=== PATIENT | female | born 1945 | race Caucasian/White ===

== ENCOUNTER 2020-12-27 13:26 | Outpatient (CLI) | payer MEDICARE, SELFPAY | END 2020-12-27 13:27 | disposition home or self-care (01) | PROVIDERS: PCP Family Medicine; Visit Provider Family Medicine | DX: Z98.84 Bariatric surgery status (principal); I10 Essential (primary) hypertension; I63.40 Cerebral infarction due to embolism of unspecified cerebral artery | CPT/HCPCS: 36415; 82525; 84443 ==

== ENCOUNTER 2022-03-10 09:20 | Outpatient (CLI) | payer MEDICARE, SELFPAY ==
[2022-03-10 09:52] LABS: Basophils Absolute Auto 0.1 K/mm3 (0.0-0.1); Eosinophils Absolute Auto 0.1 K/mm3 (0-0.3); Eosinophils Percent Auto 2.5 % (0-4.4); Hematocrit 37.7 % (37.0-47.0); Hemoglobin 12.1 g/dL (12.0-15.0); Lymphocytes Absolute Auto 1.66 K/mm3 (0.9-3.2); Lymphocytes Percent Auto 34.8 % (18.3-44.2); Mean Corpuscular HGB Conc 32.1 g/dl (32-36); Mean Corpuscular Hemoglobin 30.6 pg (26-34); Mean Corpuscular Volume 95.4 fl (80-100); Mean Platelet Volume 11.4 fl (7.4-10.4); Monocytes Absolute Auto 0.4 K/mm3 (0.1-0.6); Monocytes Percent Auto 7.8 % (2.6-8.5); Neutrophils Absolute Auto 2.6 K/mm3 (1.3-6.7); Neutrophils Percent Auto 53.9 % (45.5-73.1); Platelet Count Result 210 k/mm3 (150-375); Red Blood Count 3.95 M/mm3 (4.2-5.4); Red Cell Distribution Width 13.6 % (11.5-14.5); White Blood Count 4.8 K/mm3 (4.5-10.0)
[2022-03-10 10:05] LABS: Alanine Aminotransferase 22 U/L (6-35); Alkaline Phosphatase 59 U/L (38-126); Anion Gap 8 mmol/L (8-16); Aspartate Amino Transferase 39 U/L (14-36); Bilirubin,Total 0.6 mg/dL (0.2-1.3); Blood Urea Nitrogen 26 mg/dL (7-17); Calcium 9.2 mg/dL (8.4-10.2); Carbon Dioxide 27 mmol/L (22-30); Chloride 107 mmol/L (98-107); Cholesterol 176 mg/dL (0-200); Estimated Glomerular Filt Rate 48; Glucose 103 mg/dL (65-110); HDL Direct 60 mg/dL; Potassium 3.8 mmol/L (3.4-5.0); Sodium 142 mmol/L (137-145); Triglycerides 45 mg/dL (<150)
[2022-03-10 10:14] LABS: Iron 80 ug/dL (37-170)
[2022-03-10 10:16] LABS: LDL Cholesterol Direct 77 mg/dL
[2022-03-10 10:23] LABS: Percent Iron Saturation 24 % (20-50)
[2022-03-10 10:45] LABS: Vitamin D 25 Hydroxy 44.8 ng/mL
== END 2022-03-10 09:21 | disposition home or self-care (01) ==
PROVIDERS: PCP Family Medicine; Visit Provider Family Medicine
DX: E78.2 Mixed hyperlipidemia (principal); I10 Essential (primary) hypertension; I63.9 Cerebral infarction, unspecified; N20.0 Calculus of kidney; R42 Dizziness and giddiness; Z13.220 Encounter for screening for lipoid disorders; Z98.84 Bariatric surgery status; E55.9 Vitamin D deficiency, unspecified
CPT/HCPCS: 36415; 80048; 80061; 80076; 82306; 82607; 83540; 83550; 84443; 85025

== ENCOUNTER 2022-08-20 08:30 | Day surgery (SDC) | payer MEDICARE, SELFPAY ==
[2022-08-13 14:28] VITALS: BMI 28.8
--- NOTE | 2022-08-19 13:20 | WPDANESEPPF ---
Anes - Initial Pre Proc Eval Procedure: Operation Date: 08/20/22 10:00 Proposed Procedures p Cataract Extraction with Lens Implant-Left Eye - Piotr Lee MD Date/Time: 08/19/22 13:20 Surgeon: Piotr Lee MD Pre Op Diagnosis: Cataract Left Eye Patient Data Age: 76 Gender: F Height: 1.63 m Weight: 76 kg Allergies Allergy/AdvReac Type Severity Reaction Status Date / Time metronidazole [From Flagyl] Allergy Intermediate Hives Verified 08/20/22 09:12 Home Medications Medication Instructions Recorded Confirmed Type aspirin 81 mg tablet,delayed 81 mg PO DAILY 12/25/20 08/13/22 History release (Adult Aspirin Regimen) multivitamin 1 tablet PO DAILY 12/25/20 08/13/22 History simvastatin 20 mg tablet 20 mg PO DAILY #90 tabs 04/06/22 08/13/22 Rx losartan 50 mg tablet 50 mg PO DAILY #90 tabs 07/14/22 08/20/22 Rx fexofenadine 180 mg tablet 180 mg PO DAILY 08/13/22 08/13/22 History Patient hx anesthesia problems: none Family hx anesthesia problems: none Results Review: All pre-operative results and documents have been reviewed as part of the pre-operative evaluation. [facility] Past Medical History Medical History (Updated 08/19/22 @ 13:20 by Yossi Mcclain DO) Bilateral senile cataracts BMI 25.0-25.9,adult Cerebrovascular accident (CVA) residual weakness left side Hyperlipidemia Hypertension Renal stones Screening mammogram, encounter for Stage 3 chronic kidney disease Stress due to illness of family member Vertigo Surgical History Surgical History H/O gastric bypass History of bilateral breast reduction surgery History of gastric bypass Family History Family History Other Cerebrovascular accident Diabetes mellitus Hypertension Social History Social History Smoking status: Never smoker Second hand tobacco smoke exposure: No Alcohol intake: current Drinks per week: 1 Substance use: never Substance use type: does not use Living arrangements: alone Spiritual care concerns: No Anes - Eval Final PreProcedure Day of Procedure 08/19/22 13:20 Patient weight: obese Heart: regular rate and rhythm Lungs: clear to auscultation and normal air movement Airway: Mallampati scale class II Neurological: alert and oriented Last oral intake: >/= 8 hours ASA classification: III Emergent: no Anesthetic plan: proceed Anesthesia type and monitoring: monitored anesthesia care and standard monitoring Results Review: All pre-operative results and documents have been reviewed as part of the pre-operative evaluation. Informed Consent: The patient's anesthetic plan and its attendant risks and benefits were discussed with the patient/family/POA. Questions were solicited and answers provided to the satisfaction of the patient/family/POA.
--- NOTE | 2022-08-20 08:58 | WPDHPUPDATE1 ---
History and Physical Update Update Date/Time: 08/20/22 08:58 History and Physical has been reviewed, including an updated exam of the patient. There are NO changes in the patient's condition. Risks, benefits, and alternatives have been discussed and questions answered. Patient agrees to proceed with procedure.
[2022-08-20 09:13] VITALS: BP 105/68; PULSE 59; RESP 18; TEMP 37; O2SAT 100
[2022-08-20] MEDS: TETRACAINE HCL 0.5% OPHTH SOLN 4 ML BTL 1 DROP AFFCTD EYE ×3 (09:24→09:34)
[2022-08-20] MEDS: OFLOXACIN 0.3% OPHTH SOLN 5 ML BTL 1 DROP AFFCTD EYE (09:24)
[2022-08-20] MEDS: LIDOCAINE HCL 2% JELLY 5 ML TUBE 1 APPLIC AFFCTD EYE (10:47)
[2022-08-20] MEDS: LIDOCAINE HCL 1% PF INJ 5 ML VIAL 1 ML INTRAOCULA (11:09)
[2022-08-20] MEDS: HOME MEDICATION 1 EACH AFFCTD EYE (11:10)
[2022-08-20] MEDS: NEOMYCIN/POLYMYXIN/DEXAMETH OP OINT 3.5 GM TUBE 1 APPLIC AFFCTD EYE (11:10)
[2022-08-20 11:15] VITALS: BP 130/66; PULSE 64; RESP 16; O2SAT 100
[2022-08-20] MEDS: acetaZOLAMIDE TAB 250 MG TABLET PO (11:24)
--- NOTE | 2022-08-20 12:05 | WPDANESPN ---
Anes - Prog Note Post-Op Date/Time: 08/20/22 12:05 Cardiovascular status: normal Respiratory status: normal Airway patency: baseline Mental status: baseline Post-Op hydration status: normal Vital Signs: Last Vital Signs Temp 37.0 C 08/20/22 09:13 Pulse 64 08/20/22 11:15 Resp 16 08/20/22 11:15 BP 130/66 08/20/22 11:15 Pulse Ox 100 08/20/22 11:15 O2 Del Method Room Air 08/20/22 11:15 Pain Score (VAS): 0 Post-procedural complaints: none Patient Feedback: Patient satisfied with anesthetic care. Other Findings: Patient vital signs back to baseline. Patient denies nausea and vomiting. Patient's pain under control. Patient OK for discharge.
--- NOTE | 2022-08-20 12:31 | W.PM.PROC2 ---
Procedure Note - Detailed Date of Procedure 08/20/22 Pre-op Diagnosis Cataract Left Eye Post-op Diagnosis Same Procedure Performed Cataract Extraction (by Phacoemulsification) and lntraocular Lens Implant Surgeon Piotr Lee MD Anesthesia MAC Description of Procedure The eye was anesthetized with topical 0.75% bupivacaine. After intravenous sedation and placement of monitors, the patient was prepped and draped in the usual sterile manner. A lid speculum was placed. A paracentesis was made, and preservative free 1% lidocaine was instilled in the anterior chamber. The anterior chamber was then filled with Viscoat viscoelastic. A sugar keratome was used to create the wound. Continuous tear anterior capsulotomy was performed. The lens was hydro dissected before being removed with phacoemulsification. The remaining lenticular cortex was removed with aspiration. The capsular bag was polished and filled with viscoelastic material. An intraocular lens was chosen, inspected, irrigated and placed within the capsular bag where it was seen to be centered and stable. The viscoelastic material was aspirated. The wound was closed and found to be watertight. Ciloxan drops were placed in the eye. The speculum was removed. A Horton shield was applied. The patient tolerated the procedure well and left the operating room in satisfactory condition. Implants See chart Complications None Condition Stable Disposition Same day
== END 2022-08-20 11:36 | disposition home or self-care (01) ==
PROVIDERS: PCP Family Medicine; Visit Provider Student in an Organized Health Care Education/Training Program
PROC: (CPT 66983; principal; 2022-08-20 10:00)
DX: H25.12 Age-related nuclear cataract, left eye (principal)
CPT/HCPCS: 66984

== ENCOUNTER 2023-10-14 12:54 | Outpatient (CLI) | payer MEDICARE, SELFPAY ==
[2023-10-14 13:41] LABS: Basophils Absolute Auto 0.1 K/mm3 (0.0-0.1); Basophils Percent Auto 0.8 % (0.2-1.2); Eosinophils Absolute Auto 0.1 K/mm3 (0-0.3); Eosinophils Percent Auto 2.2 % (0-4.4); Hematocrit 43.4 % (37.0-47.0); Immature Granulocyte Absolute 0.02 K/mm3 (0.00-0.031); Immature Granulocyte Percent A 0.3 % (0-0.5); Mean Corpuscular HGB Conc 32.3 g/dl (32-36); Mean Corpuscular Hemoglobin 30.7 pg (26-34); Mean Corpuscular Volume 95.2 fl (80-100); Mean Platelet Volume 11.8 fl (7.4-10.4); Monocytes Absolute Auto 0.3 K/mm3 (0.1-0.6); Monocytes Percent Auto 5.2 % (2.6-8.5); Neutrophils Absolute Auto 4.1 K/mm3 (1.3-6.7); Neutrophils Percent Auto 69.5 % (45.5-73.1); Platelet Count Result 231 k/mm3 (150-375); Red Blood Count 4.56 M/mm3 (4.2-5.4); Red Cell Distribution Width 14.4 % (11.5-14.5); White Blood Count 5.9 K/mm3 (4.5-10.0)
[2023-10-14 13:51] LABS: Alanine Aminotransferase 21 U/L (6-35); Albumin Level 4.4 g/dL (3.5-5.1); Alkaline Phosphatase 86 U/L (38-126); Anion Gap 7 mmol/L (4-12); Aspartate Amino Transferase 38 U/L (14-36); Blood Urea Nitrogen 22 mg/dL (7-17); Calcium 9.4 mg/dL (8.4-10.2); Carbon Dioxide 27 mmol/L (22-30); Chloride 107 mmol/L (98-107); Cholesterol 185 mg/dL (0-200); Estimated Glomerular Filt Rate 54; Glucose 102 mg/dL (65-110); HDL Direct 68 mg/dL; Sodium 141 mmol/L (137-145); Triglycerides 114 mg/dL (<150)
[2023-10-14 14:02] LABS: LDL Cholesterol Direct 86 mg/dL
== END 2023-10-14 12:55 | disposition home or self-care (01) ==
PROVIDERS: PCP Family Medicine; Visit Provider Physician Assistant
DX: E78.5 Hyperlipidemia, unspecified (principal); I12.9 Hypertensive chronic kidney disease with stage 1 through stage 4 chronic kidney disease, or unspecified chronic kidney disease; N18.30 Chronic kidney disease, stage 3 unspecified; R79.89 Other specified abnormal findings of blood chemistry
CPT/HCPCS: 36415; 80053; 80061; 84443; 85025

== ENCOUNTER 2025-04-08 10:02 | Outpatient (CLI) | payer MEDICARE, SELFPAY ==
--- OUTSIDE RECORDS SUMMARY | 2025-04-08 10:07 | XMS_ITS | Encounter Summary ---
Author Organization [facility] Address [address] [facility] [place] [address] Phone Care Team Providers Care Notched Blade Loader Name Role Phone Danie Hirsch MD Primary Care Provider [phone] Reason for Visit * Reason Comments Medication Refill Encounter Details Date Type Department Care Team (Late st Contact Info) Description 11/25/2020 Refill [facility] [address] [place] [address] Danie Hirsch MD [address] [address] Medication Refill Social History Tobacco Use Types Packs/Day Years Used Date Smoking Tobacco: Never Smokeless Tobacco: Never Alcohol Use Standard Drinks/Week Comments No 0 (1 standard drink = 0.6 oz pur e alcohol) PHQ-2 Answer Date Recorded Total Score - Questions 1-9 0 09/28 Sexually Active Control Partners Comments Yes Male Comments No Sex and Gender Information Value Date Recorded Sex Assigned at Not on file Legal Sex Female 9:31 PM CDT Gender Identity Not on file Sexual Orientation Not on file documented as of this encounter Miscellaneous Notes * Telephone Encounter - Sharita Zee RN - 11/27/2020 3:18 PM CDT Disp Refills Start End losartan (COZAAR) 50 MG Tablet 90 Tablet 3 10/16/2020 Sig - Route: Take 1 Tablet by mouth daily. - Oral Sent to pharmacy as: Losartan Potassium 50 MG Oral Tablet (COZAAR) Class: E Prescribe E-Prescribing Status: Receipt confirmed by pharmacy (10/16/2020 ??8:44 AM CDT) losartan (COZAAR) 50 MG Tablet [[id number]] 2 Status: Active Ordering user: Danie Hirsch MD 10/16/20842 Authorized by: Danie Hirsch MD Frequency: Daily 10/16/20 - Until Discontinued Released by: Sabina Umanzor CMA 10/16/20842 Pharmacy [id number] - [place], [place] - [address] AT [place] [address]) & [address] documented in this encounter Plan of Treatment Not on file documented as of this encounter Visit Diagnoses Not on filedocumented in this encounter Additional Health Concerns Assessment Noted Time PHQ-9 Depression Total Score: 0 10/17/19 8:00 AM CDT documented as of this encounter Care Teams Notched Blade Loader Relationship Specialty Start Date End Date Danie Hirsch MD [address] [address] PCP - General Family Medicine 04/07/15 10/26/23 documented as of this encounter
--- OUTSIDE RECORDS SUMMARY | 2025-04-08 10:07 | XMS_ITS | Clinical Summary ---
Author Organization [facility] Address [address] [address] Phone Care Team Providers Care Paint Coating Machine Operator Name Role Phone Unavailable Primary Care Provider Unavailabl e Allergies Active Allergy Reactions Criticality Noted Date Comments Metronidazole Hives Medium Medications multiple vitamin with minerals (CENTRUM SILVER) Tablet Take 1 Tab by mouth daily. Active loratadine (CLARITIN) 10 MG Tablet Take 10 mg by mouth Every other day. Active Protein (UNJURY PO)Indications:Ba riatric multivitamin Take 1 Tab by mouth daily. Active pantoprazole (PROTONIX) 40 MG Tablet Delayed Response 05/07/2017 Active Cholecalciferol (VITAMIN D3 PO) Take by mouth. Active Vitamin B-1 (THIAMINE) 100 MG Tablet Take by mouth. Active Aspirin 81 MG Tablet Take 81 mg by mouth daily. Active Multiple Vitamins-Minerals (HAIR SKIN NAILS PO)Indications:Hi story of gastric bypass Take by mouth. Active simvastatin (ZOCOR) 20 MG Tablet Take 1 Tablet by mouth every evening. 90 Tablet 3 10/16/2020 Active losartan (COZAAR) 50 MG Tablet Take 1 Tablet by mouth daily. 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 Type 2 diabetes mellitus without complication Pure hypercholesterolemia 11/14/2015 CVA (cerebral infarction) HTN (hypertension) Immunizations Immunization Administration Dates Next Due Covid-19, Mrna, Lnp-s, Pf, 3 0 Mcg/0.3 Ml Dose (WirelessGate) 09/11/2020,08/21/2020 Influenza Vaccine 03/11/2017,03/28/2015 Influenza Vaccine greater than 3 yrs 03/17/2019, 02/27/2015,03/29/2011 Influenza, High-dose, Quadrivalent 03/23/2020 Influenza, Seasonal, Injecta ble, Undefined 03/17/2019,02/27/2015,03/30/2014,2010 Influenza, high-dose, trivalent, PF 02/28,03/10/2019,03/04/2018,2016,03/26/2016,03/28/2013 Pneumococcal Vaccine - 13 Valent 04/07/2015 Pneumococcal Vaccine Adult - 23 Valent 02/28/2012 Zoster Vaccine, live 03/30/2014 Family History Medical History Relation Name Comments Heart Disease Brother Heart Surgery Brother 5 vessel Diabetes Father Stroke Father Aneurysm Mother High Cholesterol Mother Hypertension Mother Relation Name Status Comments Brother Alive Father (Age 50's) Mother (Age 72) Social History Tobacco Use Types Packs/Day Years Used Date Smoking Tobacco: Never Smokeless Tobacco: Never Tobacco Cessation:Counseling Given: Yes Alcohol Use Standard Drinks/Week Comments No 0 [...] on file Sexual Orientation Not on file Last Filed Vital Signs Vital Sign Reading Time Taken Comments Blood Pressure 118/72 10/16/2020 8:27 AM CDT Pulse 50 10/16/2020 8:27 AM CDT Temperature 35.9 C (96.7 F) 10/16/2020 8:27 AM CDT Respiratory Rate 16 10/16/2020 8:27 AM CDT Oxygen Saturation 99% 10/16/2020 8:27 AM CDT Inhaled Oxygen Concentration - - Weight 77.7 kg (171 lb 6.4 oz) 10/16/2020 8:27 A M CDT Height 163.8 cm (5' 4.5) 10/16/2020 8:27 AM CDT Body Mass Index 28.97 10/16/2020 8:27 AM CDT Plan of Treatment Health Maintenance Due Date Last Done Comments DEXA Bone Density 1945 Diabetes: Eye Exam 1945 Diabetes: Foot Exam 1945 Hepatitis C Virus (HCV) Screening 1945 TdaP Immunization 1945 Zoster Immunization (1 of 2) 05/25/2014 03/30/2014 Medicare Initial AWV [id number] 06/29/2015 Diabetes: Hemoglobin A1c 04/12/2021 021, 09/02/2018, 02/03/2018, Additional history exists Diabetes: Nephropathy Screening 10/11/2021 10/11/2020, 09/02/2018, 02/03/2018, Additional history exists Respiratory Syncytial Virus (RSV) Immunization (Adult) (1 - 1-dose 75+ series) 2021 Influenza Immunization (#1) 2025 092 10/2019, 03/23/2020, 03/17/2019, Additional history exists SARS-COV-2 Immunization ( season) 2025 04/21/2021, 09/11/2020, 08/21/2020 Colonoscopy Discontinued 06/02/2011 Colorectal Cancer Screening Discontinued Pneumococcal Immunization (50+ years) Completed 04/07/2015, 02/28/2012 Pneumococcal Immunization Combined Discontinued 04/07/2015, 02/28/2012 Mammogram Discontinued 02/25/2018, 12/19/2016 Cologuard Discontinued Hepatitis B Immunization Aged Out No longer eligible based on patient's age to complete this topic Human Papillomavirus (HPV) Immunization Aged Out No longer eligible based on patient's age to complete this topic Immunochemical Fecal Occult Blood Discontinued Meningococcal Immunization (ACWY) Aged Out No longer eligible based on patient's age to complete this topic Rotavirus Immunization Aged Out No lo nger eligible based on patient's age to complete this topic Medical Devices Implanted Type Area Resaw Feeder Device Identifier Shelf Expiration Date Model / Serial / Lot Bard Inlay Ureteral Stent 6fr X24 Cm Implanted:Qty: 1 on 07/07/2017 by Hang Ceballos MD at [facility] Right: Ureter 07/23/2021 [id number] / [id number] / [id number] Procedures Procedure Name Priority Date/Time Associated Diagnosis Comments CMP (COMPREHENSIVE METABOLIC PANEL) Routine 10/11/2020 7:32 AM CDT Type 2 diabetes mellitus without complication, without long-term current use of insulin (HCC) Essential hypertension Pure hypercholesterolemia HEMOGLOBIN A1C W/ ESTIMATED GLUCOSE Routine 10/11/2020 7:32 AM CDT Type 2 diabetes mellitus without complication, without long-term current use of insulin (HCC) [facility] [address] [facility] SCREENING BILATERAL DIGITAL W CAD W ANKIT Routine 02/25/2018 6:41 AM CDT Breast cancer screening COLONOSCOPY Routine 06/02/2011 from Last 3 Months or Most Recently Relevant to Health Maintenance Results * HEMOGLOBIN A1C W/ ESTIMATED GLUCOSE (10/11/2020 7:32 AM CDT) HGB-A1C 5.5 4.0 - 6.0 % 10/11/2020 1:32 PM CDT [facility] Est Average Glucose 111.2 mg/dL 10/11/2020 1:32 PM CDT [facility] Blood Venipuncture / Unknown 10/11/2020 7:32 AM CDT 10/11/2020 7:32 AM CDT Narrative [facility] - 10/11/2020 1:32 PM CDT HEMOGLOBIN A1C: DIABETIC PATIENTS: WELL-CONTROLLED: 6.2 - 7.0 INTERMEDIATE WELL-CONTROLLED: 7.0 - 9.0 POORLY-CONTROLLED: >9.0 us Danie Hirsch MD CHEMISTRY ORDERABLES Final Re sult [facility] [address] [place] [address] * (ABNORMAL) CMP (COMPREHENSIVE METABOLIC PANEL) (10/11/2020 7:32 AM CDT) SODIUM 143 136 - 144 mmol/L 10/11/2020 1:28 PM [facility] POTASSIUM 4.2 3.5 - 5.1 mmol/L 10/11/2020 1:28 PM [facility] CHLORIDE 105 100 - 110 mmol/L 10/11/2020 1:28 PM [facility] CO2, VENOUS 30 22 - 32 mmol/L 10/11/2020 1:28 PM [facility] ANION GAP 12.2 8.0 - 20.0 mmol/L 10/11/2020 1:28 PM [facility] GLUCOSE 96 70 - 99 mg/dL 10/11/2020 1:28 PM [facility] BUN 19 8 - 23 mg/dL 10/11/2020 1:28 PM [facility] CREATININE, BLOOD 0.93 0.60 - 1.10 mg/dL 10/11/2020 1:28 PM [facility] BUN/CREATININE RATIO 20 12 - 20 ratio 10/11/2020 1:28 PM [facility] TOTAL PROTEIN 7.1 6.0 - 8.3 g/dL 10/11/2020 1:28 PM [facility] ALBUMIN 4.2 3.5 - 5.2 g/dL 10/11/2020 1:28 PM [facility] Comment: The colormetric methods used for the determination of Albumin may lead to falsely elevated test results in patients suffering from renal failure or insufficiency due to interference with other proteins. A/G RATIO 1.4 1.0 - 2.0 10/11/2020 1:28 PM [facility] CALCIUM 10.1 8.9 - 10.3 mg/dL 10/11/2020 1:28 PM [facility] T BILI 1.0 <=1.2 mg/dL 10/11/2020 1:28 PM [facility] SGOT (AST) 32 <=32 U/L 10/11/2020 1:28 PM CDT [facility] SGPT (ALT) 15 <=41 U/L 10/11/2020 1:28 PM CDT [facility] ALKALINE PHOSPHATASE 73 35 - 105 U/L 10/11/2020 1:28 PM CDT [facility] GFR, EST. NONAFRICAN 59(L) >=60 10/11/2020 1:28 PM CDT [facility] GFR, EST. >60 >=60 021 1:28 PM CDT [facility] Comment: Creatinine Clearance is the preferred criteria for selecting drug dose adjustments in renally impaired patients. The GFR is provided as additional pertinent clinical information. GFR is reported in mL/min/1.73 sq m. Blood Venipuncture / Unknown 10/11/2020 7:32 AM CDT 10/11/2020 7:32 AM CDT us Danie Hirsch MD CHEMISTRY ORDERABLES Final Re sult [facility] [address] [place] [address] * [facility] SCREENING BILATERAL DIGITAL W CAD W ANKIT (02/25/2018 6:41 AM CDT) Anatomical Region Laterality Modality breast Bilateral Mammography 02/25/2018 6:20 AM CDT Narrative 02/25/2018 11:21 AM CDT - [facility] SCREENING BILATERAL DIGITAL W CAD W ANKIT BILATERAL DIGITAL SCREENING MAMMOGRAM 3D/2D WITH CAD WITH MEDIOLATERAL OBLIQUE CRANIOCAUDAL: 02/25/2018 The study was acquired using digital technology and interpreted from soft copy. Current study was also evaluated with ICAD version 7.2. CLINICAL: Routine screening. Patient has lost 114 pounds since last exam. History of breast reduction. Patient states right nipple has always been inverted. Personal history of liposarcoma. No family history of breast cancer. COMPARISONS: Comparison is made to exams dated: 12/19/2016, 12/01/2014, and 11/30/2013 [facility]. BREAST TISSUE:There are scattered fibroglandular densities in both breasts. FINDINGS: There is a 1.3 cm mass in the right breast at 1 o'clock anterior depth. No other significant masses, calcifications, or other findings are seen in either breast. IMPRESSION: BI-RAD 0 ADDITIONAL IMAGING EVALUATION NEEDED The 1.3 cm mass in the right breast needs additional evaluation. An immediate follow-up is recommended. The patient has been or will be contacted. Electronically signed by: Farzad thomas/penrad:02/25/2018 10:05:59 Banking Representative: Sandhya Nichole(Imani), [facility] letter sent: Additional Imaging Reading location: [facility] BI-RADS: 0 Additional Imaging Evaluation Needed Procedure Note Farzad Wright MD - 02/25/2018 - [facility] [address] [facility] SCREENING BILATERAL DIGITAL W CAD W ANKIT BILATERAL DIGITAL SCREENING MAMMOGRAM 3D/2D WITH CAD WITH MEDIOLATERAL OBLIQUE CRANIOCAUDAL: 02/25/2018 The study was acquired using digital technology and interpreted from soft copy. Current study was also evaluated with ICAD version 7.2. CLINICAL: Routine screening. Patient has lost 114 pounds since last exam. History of breast reduction. Patient states right nipple has always been inverted. Personal history of liposarcoma. No family history of breast cancer. COMPARISONS: Comparison is made to exams dated: 12/19/2016, 12/01/2014, and 11/30/2013 [facility]. BREAST TISSUE:There are scattered fibroglandular densities in both breasts. FINDINGS: There is a 1.3 cm mass in the right breast at 1 o'clock anterior depth. No other significant masses, calcifications, or other findings are seen in either breast. IMPRESSION: BI-RAD 0 ADDITIONAL IMAGING EVALUATION NEEDED The 1.3 cm mass in the right breast needs additional evaluation. An immediate follow-up is recommended. The patient has been or will be contacted. Electronically signed by: Farzad thomas/penrad:02/25/2018 10:05:59 Banking Representative: Sandhya Nichole(Imani), [facility] letter sent: Additional Imaging Reading location: [place] BI-RADS: 0 Additional Imaging Evaluation Needed us Danie Hirsch MD IMG MAMMO ORDERABLES Final Re sult * [facility] COLONOSCOPY (06/02/2011) Danie Hirsch MD PROCEDURE/MINOR SURGICAL ORDE RABLES Final Result from Last 3 Months or Most Recently Relevant to Health Maintenance [facility] Advance Directives * Full Code (Latest Code Status on File) Date Activated Date Inactivated Comments 07/05/2017 11:27 PM 07/07/2017 7:28 PM CPR-Full Anju tment: FULL ARREST: Attempt Resuscitation/CPR wit intubation and mechanical ventilation. PRE-ARREST: Use entire range of life support measures to stabilize the patient.
--- OUTSIDE RECORDS SUMMARY | 2025-04-08 10:07 | XMS_ITS | Encounter Summary ---
Author Organization [facility] Address [address] [facility] [place] [address] Phone Care Team Providers Care Device Engineer Name Role Phone Danie Hirsch MD Primary Care Provider [phone] Reason for Visit * Reason Comments Medication Refill Encounter Details Date Type Department Care Team (Late st Contact Info) Description 01/01/2022 Refill [facility] [address] [place] [address] Danie Hirsch MD [address] [address] Medication Refill Social History Tobacco Use Types [...] encounter Miscellaneous Notes * Telephone Encounter - Apoorva Hanna RMA - 01/06/2022 1:05 PM CDT Pt has different provider. * Telephone Encounter - Apoorva Hanna RMA - 01/02/2022 8:45 AM CDT LVM * Telephone Encounter - Sharita Zee RN - 01/02/2022 8:22 AM CDT Needs appointment with PCP * Telephone Encounter - Sharita Zee RN - 01/02/2022 8:21 AM CDT Medication failed the protocol, provider to review and approve the medication order if appropriate. Requested Prescriptions Pending Prescriptions Disp Refills simvastatin (ZOCOR) 20 MG Tablet [Pharmacy Med Name: SIMVASTATIN 20MG TABLETS] 30 Tablet 0 Sig: TAKE 1 TABLET BY MOUTH EVERY EVENING Hmg CoA Reductase Inhibitors Protocol Failed - 01/01/2022 11:10 AM Failed - Visit with relevant provider in past 12 months or upcoming 90 days Recent Visits No visits were found meeting these conditions. Showing recent visits within past 365 days and meeting all other requirements Future Appointments No visits were found meeting these conditions. Showing future appointments within next 90 days and meeting all other requirements Failed - Lipid panel in past 12 months LDL Date Value Ref Range Status 10/11/2020 93 5 - 130 mg/dL Final HDL CHOLESTEROL Date Value Ref Range Status 10/11/2020 73.3 >40 mg/dL Final CHOLESTEROL Date Value Ref Range Status 10/11/2020 176 <=200 mg/dL Final TRIGLYCERIDES Date Value Ref Range Status 10/11/2020 49 <150 mg/dL Final VLDL Date Value Ref Range Status 10/11/2020 10 5 - 55 mg/dL Final CHOL/HDL RATIO Date Value Ref Range Status 10/11/2020 2.4 0.0 - 4.4 Final NON-HDL CHOLESTEROL Date Value Ref Range Status 10/11/2020 102.7 <130 mg/dL Final losartan (COZAAR) 50 MG Tablet [Pharmacy Med Name: LOSARTAN 50MG TABLETS] 30 Tablet 0 Sig: TAKE 1 TABLET BY MOUTH DAILY ARB Protocol Failed - 01/01/2022 11:10 AM Failed - Serum potassium on record in past 12 months POTASSIUM Date Value Ref Range Status 10/11/2020 4.2 3.5 - 5.1 mmol/L Final Failed - BP on record in the past year Clinician-entered: BP Readings from Last 3 Encounters: 10/16/20 118/72 05/06/19 116/68 11/21/18 123/53 Patient-entered: No data recorded Failed - Visit with relevant provider in past year or upcoming 90 days Recent Visits No visits were found meeting these conditions. Showing recent visits within past 365 days and meeting all other requirements Future Appointments No visits were found meeting these conditions. Showing future appointments within next 90 days and meeting all other requirements Failed - GFR on record in past 12 months GFR, EST. NONAFRICAN Date Value Ref Range Status 10/11/2020 59 (L) >=60 Final documented in this encounter Plan of Treatment Not on file documented as of this encounter Visit Diagnoses Not on filedocumented in this encounter Additional Health Concerns Assessment Noted Time PHQ-9 Depression Total Score: 0 10/17/19 8:00 AM CDT documented as of this encounter Care Teams Device Engineer Relationship Specialty Start Date End Date Danie Hirsch MD [address] [address] PCP - General Family Medicine 04/07/15 10/26/23 documented as of this encounter
--- OUTSIDE RECORDS SUMMARY | 2025-04-08 10:07 | XMS_ITS | Encounter Summary ---
Author Organization [facility] Address [address] [place] [address] Phone Care Team Providers Care Chandelier Maker Name Role Phone Danie Hirsch MD Primary Care Provider [phone] Reason for Visit * Reason Comments Medication Refill Encounter Details Date Type Department Care Team (Late st Contact Info) Description 08/25/2020 Refill [facility] - Family Medicine [facility] [address] [place] [address] Danie Hirsch MD [address] [address] Medication Refill Social History Tobacco Use Types Packs/Day Years Used Date Smoking Tobacco: Never Smokeless Tobacco: Never Alcohol Use Standard Drinks/Week Comments No 0 (1 standard drink = 0.6 oz pur e alcohol) PHQ-2 Answer Date Recorded PHQ-2 Score 0 03/02/2019 Sexually Active Control Partners Comments Yes Male Comments No Sex and Gender Information Value Date Recorded Sex Assigned at Not on file Legal Sex Female 9:31 PM CDT Gender Identity Not on file Sexual Orientation Not on file documented as of this encounter Miscellaneous Notes * Telephone Encounter - Danie Hirsch MD - 08/27/2020 9:03 AM CST Prescription approved. Please call in TIG WELDER * Telephone Encounter - Sharita Zee RN - 08/27/2020 8:57 AM CST Next OV 10/16/20 Medication failed the protocol, provider to review and approve the medication order if appropriate. Requested Prescriptions Pending Prescriptions Disp Refills losartan (COZAAR) 50 MG Tablet [Pharmacy Med Name: LOSARTAN 50MG TABLETS] 90 Tablet 0 Sig: TAKE 1 TABLET BY MOUTH DAILY Cardiovascular: Angiotensin Receptor Blockers Failed - 08/25/2020 8:24 AM Failed - Valid encounter within last 12 months Past Office Visits Recent Outpatient Visits 1 year ago Type 2 diabetes mellitus without complication, without long-term current use of insulin ([facility]) [facility] Danie Patten MD 1 year ago Pure hypercholesterolemia [facility] Danie Patten MD 2 years ago Type 2 diabetes mellitus without complication, without long-term current use of insulin([facility]) [facility] Danie Carmona MD 3 years ago Type 2 diabetes mellitus without complication, without long-term current use of insulin([facility]) [facility] Danie Carmona MD 3 years ago Essential hypertension [facility] Danie Patten MD Upcoming Appointments Future Appointments In 1 month [facility], [facility], [facility] In 1 month [facility] - Recent and Past Visits Recent Visits No visits were found meeting these conditions. Showing recent visits within past 460 days with a meds authorizing provider and meeting all other requirements Future Appointments Date Type Provider Dept 10/16/20 Appointment Danie Hirsch MD [facility] Showing future appointments within next 90 days with a meds authorizing provider and meeting all other requirements Failed - Last BP in normal range BP Readings from Last 1 Encounters: 05/06/19 116/68 TIG WELDER documented in this encounter Plan of Treatment Not on file documented as of this encounter Visit Diagnoses Not on filedocumented in this encounter Additional Health Concerns Assessment Noted Time PHQ-9 Depression Total Score: 0 09/24/19 19 11:00 AM CDT documented as of this encounter Care Teams Chandelier Maker Relationship Specialty Start Date End Date Danie Hirsch MD [address] [address] PCP - General Family Medicine 04/07/15 10/26/23 documented as of this encounter
[2025-04-08 10:21] LABS: Hematocrit 40.0 % (37.0-47.0); Hemoglobin 12.5 g/dL (12.0-15.0); Immature Granulocyte Percent A 0.1 % (0-0.5); Lymphocytes Absolute Auto 1.73 K/mm3 (0.9-3.2); Mean Corpuscular HGB Conc 31.3 g/dl (32-36); Mean Corpuscular Hemoglobin 29.0 pg (26-34); Mean Corpuscular Volume 92.8 fl (80-100); Nucleated Red Blood Cells Absolute Auto 0.000 K/mm3 (0.0-0.012); Nucleated Red Blood Cells Perc 0.0 % (0.0-0.2); Platelet Count Result 233 k/mm3 (150-375); Red Blood Count 4.31 M/mm3 (4.2-5.4); White Blood Count 6.8 K/mm3 (4.5-10.0)
[2025-04-08 10:42] LABS: Chloride 107 mmol/L (98-107); Potassium 4.5 mmol/L (3.4-5.0); Sodium 141 mmol/L (137-145)
[2025-04-08 10:43] LABS: Alanine Aminotransferase 21 U/L (6-35); Albumin Level 4.0 g/dL (3.5-5.1); Alkaline Phosphatase 69 U/L (38-126); Anion Gap 6 mmol/L (4-12); Aspartate Amino Transferase 42 U/L (14-36); Bilirubin,Total 1.0 mg/dL (0.2-1.3); Blood Urea Nitrogen 27 mg/dL (7-17); Calcium 9.2 mg/dL (8.4-10.2); Carbon Dioxide 28 mmol/L (22-30); Cholesterol 151 mg/dL (0-200); Estimated Glomerular Filt Rate 48; Glucose 89 mg/dL (65-110); HDL Direct 62 mg/dL; Total Protein 6.9 g/dL (6.3-8.2); Triglycerides 49 mg/dL (<150)
[2025-04-08 11:18] LABS: Thyroid Stimulating Hormone 4.880 uIU/mL (0.465-4.680)
== END 2025-04-08 10:03 | disposition home or self-care (01) ==
PROVIDERS: PCP Family Medicine; Visit Provider Nurse Practitioner Family
DX: E55.9 Vitamin D deficiency, unspecified (principal); I10 Essential (primary) hypertension; E78.2 Mixed hyperlipidemia; Z13.1 Encounter for screening for diabetes mellitus; Z13.220 Encounter for screening for lipoid disorders
CPT/HCPCS: 36415; 80053; 80061; 82306; 84443; 85025